=== PATIENT | male | born 1950 | race Hispanic/Latino ===

== ENCOUNTER 2017-05-18 07:11 | Day surgery (SDC) | payer MEDICARE, BC ==
[2017-05-08 12:29] VITALS: BMI 33.2
[2017-05-18] MEDS ORDERED: Benzocaine/Butamben/Tetracai 14-2-2% TOP Spray TOP ONE (07:31)
[2017-05-18] MEDS ORDERED: Propofol 10 mg/ml Inj (20 ML) ONE ×2 (07:32→08:09)
[2017-05-18] MEDS ORDERED: Esmolol 100 mg/10ml Inj IV ONE (08:10)
[2017-05-18] MEDS ORDERED: Sodium Chloride 0.9% 1,000 ML IV SCH (08:30)
[2017-05-18 11:13] VITALS: BP 134/79; PULSE 70; RESP 18; TEMP 97.7; O2SAT 98
--- NOTE | 2017-05-18 21:26 | CARD ---
APPROVED REPORT EKG Measurement Heart [id number] <Conclusion> Normal sinus rhythm Moderate voltage criteria for LVH, may be normal variant Borderline ECG
== END 2017-05-18 10:01 | disposition home or self-care (01) ==
LOC: ENDO 07:11
PROVIDERS: ATTEND Specialist
DX: K22.70 Barrett's esophagus without dysplasia (principal); K44.9 Diaphragmatic hernia without obstruction or gangrene; I10 Essential (primary) hypertension; G47.33 Obstructive sleep apnea (adult) (pediatric); E11.9 Type 2 diabetes mellitus without complications; Z79.84 Long term (current) use of oral hypoglycemic drugs
CPT/HCPCS: 43239; 88305; 88312; 93005; J2001; J2704; J7040 ×2

== ENCOUNTER 2018-10-01 12:46 | Outpatient (CLI) | payer MEDICARE, OTHER | END 2018-10-01 12:47 | disposition home or self-care (01) | LOC: RAD 12:47 ==

== ENCOUNTER 2018-10-03 06:54 | Outpatient (CLI) | payer MEDICARE | END 2018-10-03 06:55 | disposition home or self-care (01) | LOC: CARDIO 06:54 ==

== ENCOUNTER 2018-10-08 06:34 | Day surgery (SDC) | payer MEDICARE | END 2018-10-09 12:33 | disposition home or self-care (01) | LOC: CATH 06:34 → 2RSO 09:04 → CATH 12:29 → 2RSO 12:29 ==